=== PATIENT | female | born 1955 | race Caucasian/White ===

== ENCOUNTER 2021-04-06 22:41 | Inpatient (IN) | payer OTHER ==
[~2021-04-06] VITALS: Ht 160 cm; Wt 85.4 kg
--- NOTE | ~2021-04-06 | EKG ---
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1955 Requested By: Álvaro Dobbs Order Number: [id number] Reading MD: Measurements Intervals [place] Rate: 56 P: 61 GA: 159 QRS: 52 QRSD: 113 T: 136 QT: 461 QTc: 445 Interpretive Statements Sinus rhythm Borderline intraventricular conduction delay Repol abnrm suggests ischemia, lateral leads Minimal ST elevation, anterior leads Compared to ECG 04/11/2021 14:21:35 Possible ischemia now present Left ventricular hypertrophy no longer present ST (T wave) deviation still present [email or web address] By: 0507 Epiphany Epiphany, /CATHY
[2021-04-06 23:05] LABS: HEMATOCRIT 49.8 % (37.0-47.0); HEMOGLOBIN 15.9 gm/dL (12.0-15.0); MCH 27.8 pg (26.0-34.0); MPV 8.7 fl. (7.2-11.1); NUCLEATED RBCS 0 /100WBC; PLATELET COUNT* 469 thou/uL (150-400); RBC 5.72 mil/uL (4.20-5.00); RDW-CV 13.9 % (10.5-14.5)
[2021-04-06 23:18] LABS: PROTIME 10.6 Seconds (9.20-11.50)
[2021-04-06 23:19] LABS: CALCIUM 8.9 mg/dL (8.5-10.1); CREATININE 1.2 mg/dL (0.6-1.3); POTASSIUM 3.2 mmol/L (3.5-5.1)
[2021-04-06 23:20] VITALS: BP 300/150
[2021-04-06 23:24] LABS: ALBUMIN 3.4 g/dL (3.4-5.0); TOTAL BILIRUBIN 0.4 mg/dL (<0.1-1.0); TOTAL PROTEIN 8.5 g/dL (6.4-8.2)
[2021-04-06 23:31] VITALS: BP 172/110
[2021-04-07] VITALS (60 sets, daily range): BP systolic 99–179; BP diastolic 56–99
[2021-04-07 01:50] LABS: ABSOLUTE EOSINOPHILS 1.2 thou/uL (0.0-0.7); ABSOLUTE LYMPHOCYTES 6.6 thou/uL (0.8-5.3); ABSOLUTE NEUTROPHILS 7.1 thou/uL (1.6-8.1); PLATELET ESTIMATE INCREASED; TOXIC GRANULATION 2+
[2021-04-07 02:35] LABS: BE -10.5 mmol/L (-2 to +3); PCO2 46.7 mmHg (35.0-45.0)
[2021-04-07 02:37] LABS: PO2 191.1 mmHg (75.0-100.0); pH 7.193 (7.340-7.450)
[2021-04-07 03:51] LABS: CALCIUM 8.2 mg/dL (8.5-10.1); CREATININE 1.4 mg/dL (0.6-1.3); POTASSIUM 4.1 mmol/L (3.5-5.1)
[2021-04-07 07:27] LABS: CHLORIDE 103 mmol/L (98-107); POTASSIUM 3.7 mmol/L (3.5-5.1); SODIUM 141 mmol/L (136-145)
[2021-04-07 07:28] LABS: ANION GAP 12 mmol/L (7-16); BUN 26 mg/dL (7-18); CALCIUM 8.5 mg/dL (8.5-10.1); CO2 26 mmol/L (21-32); CREATININE 1.4 mg/dL (0.6-1.3); GLUCOSE 196 mg/dL (70-99)
[2021-04-07 07:30] LABS: CHOLESTEROL 181 mg/dL (<200); HDL CHOLESTEROL 55 mg/dL (>40); LDL CHOLESTEROL 76 mg/dL (<100); SERUM ASSESSMENT Slight Lipemia; TC:HDL 3.3 Ratio (Not establshd); TRIGLYCERIDE 251 mg/dL (<150); VLDL 50 mg/dL (<40)
--- NOTE | 2021-04-07 09:19 | CON ---
[address] [address] CONSULTATION Name: CONNIE FELDMAN Room: [address] IN .#: [id number] Admission: 04/07/21 Attend Phys: eJimy Dotson MD Discharge: Date of : 55 Report #: [id number] THIS REPORT FOR: cc: FAM - Family physician unknown FAM - Family physician unknown Álvaro Dobbs MD [facility] ~ DATE OF CONSULTATION: 04/06/2021 CARDIOLOGY CONSULTATION INDICATION: Cardiopulmonary arrest. HISTORY OF PRESENT ILLNESS: The patient is a 65-year-old [place] female whose family notified EMS of decline in health. She was found to be in respiratory distress with agonal respirations by EMS on arrival. The patient was intubated on the scene. She was transported to [facility] for further treatment. On arrival, she was found to be extremely hypertensive. Chest x-ray shows fulminant pulmonary edema. No history is available except from granddaughter who reports the patient has a history of diabetes, hypertension and hypercholesterolemia and anemia. Despite that, she is on no medications and has no family doctor. No allergies are recorded. PAST MEDICAL HISTORY: 1. Hypertension. 2. Hyperlipidemia. 3. Type 2 diabetes mellitus. 4. Anemia. PAST SURGICAL HISTORY: Not known. SOCIAL HISTORY: Not known. FAMILY HISTORY: Not known. REVIEW OF SYSTEMS: Unavailable. PHYSICAL EXAMINATION: VITAL SIGNS: Show blood pressure of 300/150 mmHg. Pulse rate is 113 beats per minute. Telemetry shows sinus tachycardia. GENERAL: This is a moderately obese, short in stature female who is intubated. She is unresponsive. HEENT: Head is normocephalic, atraumatic. Pupils are reactive. Mucous membranes are moist. NECK: Shows jugular venous distention without obvious bruit. CHEST: [place] [address] CONSULTATION Name: CONNIE FELDMAN Room: [address] IN [facility]#: [id number] Admission: 04/07/21 Attend Phys: Jeimy Dotson MD Discharge: Date of : 55 Report #: [id number] CARDIAC: Tachycardic with regular rhythm, no murmur. S4. ABDOMEN: Protuberant, soft, nontender. EXTREMITIES: No edema. SKIN: Dry. Peripheral pulses 2+ and palpable. IMAGING DATA: A 12-lead EKG shows sinus tachycardia. There is left ventricular hypertrophy with repolarization abnormality. There is 4-[address] segment elevation in the precordial leads. Chest x-ray shows fulminant pulmonary vascular congestion diffusely. LABORATORY DATA: Reviewed. White blood cell count 17, hemoglobin 15.9, platelet count 469. Sodium 139, potassium 3.2, chloride 99, bicarbonate 20, BUN 19, creatinine 1.2, serum glucose 347. IMPRESSION AND RECOMMENDATIONS: 1. Acute respiratory failure, likely due to acute heart failure, likely diastolic. Echocardiogram will be ordered and is pending. 2. Acute EKG abnormalities with ST segment elevation. Could be left ventricular hypertrophy with repolarization, cannot rule out acute anterior wall ST elevation myocardial infarction. We will proceed to the cardiac catheterization lab for urgent coronary angiography. 3. Hypertensive emergency. We will start labetalol bolus and nicardipine drip as available. Further medication adjustments to improve blood pressure control. 4. Diabetes, per hospitalist. 5. History of dyslipidemia. We will check fasting lipid profile. <ELECTRONICALLY SIGNED> By: Álvaro Dobbs MD, FACC 04/07/21 0919 [id number] [id number] Dobbs MD, FACC /nt
--- NOTE | 2021-04-07 09:29 | NUR ---
Pt is admitted to the hospital on 04/07/21 in Respiratory Failure secondary to possible ID. Pt is presently intubated and sedated. Called willi Le at: [phone] to complete assessment. Pt lives with spouse and another willi. Pt 1 step to enter the home but 10 steps to go up to her bedroom. Pt was previously independent in Mobility and ADL's. Pt has no hx of DME/HH/ or SNF. Pt has no PCP. Pt has no advanced directive that willi is aware of. CM to continue to follow for discharge planning.
--- NOTE | 2021-04-07 10:01 | EKG ---
[place] [address] ELECTROCARDIOGRAM REPORT Name: FISHJSREGLAWINCONNIE Room: [address] IN 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[place] : 1955 Requested By: Naomi Bautista Order Number: [id number] MD: Steve Yoon Measurements Intervals [place] Rate: 110 P: 27 ND: 156 QRS: 83 QRSD: 128 T: 228 QT: 345 QTc: 467 Interpretive Statements Sinus tachycardia LVH with IVCD and secondary repol abnrm Anterior ST elevation, probably due to LVH No previous ECG available for comparison Electronically Signed On 04-07-2021 10:01:41 J2EE PROGRAMMER by Steve Yoon [email or web address] <ELECTRONICALLY SIGNED> By: Steve Yoon MD, FAC 04/07/21 1001 2240 2240 Steve Yoon MD, [facility] /EPI
[2021-04-07 12:37] LABS: BE -1.9 mmol/L (-2 to +3); PCO2 43.5 mmHg (35.0-45.0); PO2 94.4 mmHg (75.0-100.0); pH 7.354 (7.340-7.450)
[2021-04-07 12:47] LABS: CALCIUM 8.1 mg/dL (8.5-10.1); CREATININE 1.6 mg/dL (0.6-1.3); MAGNESIUM 1.8 mg/dL (1.8-2.4); POTASSIUM 3.3 mmol/L (3.5-5.1)
--- NOTE | 2021-04-07 14:23 | 2DMMODE ---
[place] [address] 2 D/M-MODE ECHOCARDIOGRAM Name: CONNIE FELDMAN Room: [address] ADM IN [place]#: [id number] Admission: 04/07/21 Attend Phys: Jeimy Dotson, Discharge: Date of : 55 Date of Service: 04/07/21 1422 Report #: [id number] THIS REPORT FOR: cc: FAM - Family physician unknown FAM - Family physician unknown Steve Yoon MD [facility] ~ APPROVED REPORT Study performed: 04/07/2021 10:26:25 EXAM: Comprehensive 2D, Doppler, and color-flow Echocardiogram Patient Location: In-Patient Room #: 003 Status: routine BSA: 1.89 HR: 103 bpm BP: 107/60 mmHg Rhythm: NSR Other Information Study Quality: Adequate Indications Dyspnea 2D Dimensions IVSd: 16.21 (7-11mm) LVOT Diam: 19.90 (18-24mm) LVDd: 35.56 mm PWd: 13.91 (7-11mm) Ascending Ao: 29.43 (22-36mm) LVDs: 25.29 (25-40mm) Aortic Root: 29.91 mm Volumes Left Atrial Volume (Systole) LA ESV Index: 26.70 mL/m2 Aortic Valve AoV Peak Bruce.: 1.27 m/s AO Peak Gr.: 6.46 mmHg LVOT Max P.91 mmHg AO Mean Gr.: 3.64 mmHg LVOT Mean P.41 mmHg LVOT Max V: 0.85 m/s AO V2 VTI: 16.68 cm LVOT Mean V: 0.54 m/s ELLY (VTI): 2.16 cm2 LVOT V1 VTI: 11.60 [place] [address] 2 D/M-MODE ECHOCARDIOGRAM Name: CONNIE FELDMAN Room: [address]#: [id number] Admission: 04/07/21 Attend Phys: Jeimy Dotson, Discharge: Date of : 55 Date of Service: 04/07/21 1422 Report #: [id number] Mitral Valve E/A Ratio: 0.80 MV Decel. Time: 111.88 ms MV E Max Bruce.: 0.73 m/s MV PHT: 32.45 ms MVA (PHT): 6.78 cm2 TDI E/Lateral E': 12.17 Lateral E' Bruce.: 0.06 m/s Pulmonary Valve PV Peak Bruce.: 0.84 m/s PV Peak Gr.: 2.80 mmHg Left Ventricle The left ventricle is normal size. moderate hypokinesis of the mid and distal anteroseptal wall and apex Moderate concentric left ventricular hypertrophy. Left ventricular systolic function is mildly decreased. LVEF is 40-45%. Grade I - abnormal relaxation pattern. Right Ventricle The right ventricle is normal size. The right ventricular systolic function is normal. Atria The left atrium size is normal. The right atrium size is normal. Aortic Valve The aortic valve is normal in structure. No aortic regurgitation is present. There is no aortic valvular stenosis. Mitral Valve The mitral valve is normal in structure. There is no mitral valve regurgitation noted. No evidence of mitral valve stenosis. Tricuspid Valve The tricuspid valve is normal in structure. There is no tricuspid valve regurgitation noted. Pulmonic Valve Pulmonic valve is not well visualized. There is no pulmonic [place]vular [place] [address] 2 D/M-MODE ECHOCARDIOGRAM Name: CONNIE FELDMAN Room: [address]#: [id number] Admission: 04/07/21 Attend Phys: Jeimy Dotson, Discharge: Date of : 55 Date of Service: 04/07/21 1422 Report #: [id number] The aortic root is normal in size. IVC is normal in size and collapses >50% with inspiration. Pericardium There is no pericardial effusion. <Conclusion> Moderate concentric left ventricular hypertrophy. LVEF is 40-45%. moderate hypokinesis of the mid and distal anteroseptal wall and apex <ELECTRONICALLY SIGNED> By: Steve Yoon MD, FACC 04/07/211421 21 21 Steve Yoon MD, FACC /INF
--- NOTE | 2021-04-07 19:04 | NUR ---
0700: Assumed care of pt, received report from JOHNNA Steward. Head to toe assessment completed, VSS, and medications administrated. Monitor and titrate sedation per protocol. 1035: This RN received the results of the Troponin labs per laboratory engineer d/t being greater than 25,000. RN paged the cardiology answering service and left a message with JOHNNA Mcduffie for Dr. Dobbs about the pt's results. Waiting for further instruction/orders. Pt's HR is slightly tachycardic reading 107 on the monitor, all other VS are stable. JOHNNA Mcduffie with Dr. Dobbs's office, called back with further orders: Dr. Dobbs wants a repeat Troponin in 4 hours (1400) and start sunq Lovenox. PICC line ordered. Blood cultures obtained via laboratory engineer. 1100: PICC RN at the bedside placing a WAYNE III Lumen PICC for irritating medications and fluids. CXR stat for verification of line placement. 1200: Dr. Pyle plans to trial pt later on ventilation need. RT at the bedside. 1340: All sedation gtts off per Dr. Pyle's verbal order so that the pt can be trialed off the ventilator. Dr. Pyle at the bedside, RT Elizabeth at the bedside, along side this RN. 1400: RT trial began. Pt remained stable throughout the trial. Troponin redrawn. [id number]: Dr. Pyle at the bedside, verbal ordered for the pt to be extubated today. Troponin results called from lab, still greater than 25,000. Cardiology answering service called and message left for JOHNNA Mcduffie. Again, JOHNNA Mcduffie said once Dr. Dobbs calls with orders, she will call with them and update on how the provider wants to advance. 1600: RT Elizabeth and this RN extubated the pt. Pt tolerated well. Pt's VS remain stable despite an initial HR of 110s during extubation. Pt settled back down to the low 100s. Pt is awake and able to answer questions appropriately, still groggy d/t sedation still wearing off. Assessment remains unremarkable. 1641: JOHNNA Mcduffie called back with no further instructions/orders at this time. Dr. Dobbs wishes to wait until the pt is more medically stable all around then once she is considered stable enough, Dr. Dobbs will then re-investigate if the pt will benefit from another cardiac cath, this time with intervention possible, until then, monitor and manage symptoms with medication management. Dr. Dobbs made aware of pt's extubated status. Will continue to monitor.
--- NOTE | 2021-04-07 21:14 | CON ---
[address] [address] CONSULTATION Name: CONNIE FELDMAN Room: [address] IN .R.#: [id number] Admission: 04/07/21 Attend Phys: Jeimy Dotson MD Discharge: Date of : 55 Report #: [id number] THIS REPORT FOR: cc: FAM - Family physician unknown FAM - Family physician unknown Ankit Pyle MD ~ DATE OF CONSULTATION: 04/07/2021 Consult has been requested by Dr. Dotson. INDICATION FOR CONSULTATION: Acute hypoxemic respiratory failure. HISTORY OF PRESENT ILLNESS: This is a 65-year-old female. I do not have details regarding her past medical history available. Apparently, she is reported to have had hypertension as well as hyperlipidemia and diabetes. The patient is now admitted with respiratory distress, initially reported to have a systolic blood pressure elevated markedly to 300 systolic. She has marked elevation in troponin I as well. I understand she has had a cardiac catheterization on which old lesions were found and she may need more revascularization when she is more stable. Her arterial blood gas from last night did show a significant metabolic acidosis, I therefore did start her on a bicarb drip. Currently, she is stable. She is on 40% FiO2 and 5 of PEEP. She is sedated with propofol and fentanyl. Her triglycerides are elevated, though. Her chest x-ray from last night shows florid bilateral infiltrates versus pulmonary vascular congestion. I ordered a repeat chest x-ray and arterial blood gas now, which are pending at this time. The patient is unable to provide a further history or review of systems. PAST MEDICAL HISTORY: Hypertension, hyperlipidemia, type 2 diabetes, anemia. Echocardiogram is pending at this time. SOCIAL HISTORY: Unknown. FAMILY HISTORY: Unknown. HOME MEDICATIONS: Unknown. ALLERGIES: POSSIBLE HISTORY OF ALLERGY TO PENICILLIN. She is tolerating cephalosporins without problems. PHYSICAL EXAMINATION: VITAL SIGNS: Sedated with propofol and fentanyl. Ventilator settings on sedation are reviewed. She is on 40% FiO2, 5 of PEEP. Appears to be comfortable. She is currently hemodynamically stable. [place] [address] CONSULTATION Name: FISHJSREGLAWINCONNIE Collin Room: [address] IN [facility]#: [id number] Admission: 04/07/21 Attend Phys: Jeimy Dotson MD Discharge: Date of : 55 Report #: [id number] rate are within normal range. Endotracheal tube is in place. NECK: Does not show raised JVP, asymmetry, mass or lymph nodes. CHEST: Symmetrical expansion on inspection and palpation. On auscultation, breath sounds are bilaterally equal. No added sounds. HEART: Regular. There is no murmur. ABDOMEN: Soft and nontender. EXTREMITIES: Lower extremities, no edema, no calf tenderness. SKIN: Dry and intact. NEUROLOGIC: Moves all extremities to pain. DATA: Chest x-ray is as described above. CT head and CT abdomen also in [facility] reviewed. Arterial blood gas as discussed above. Other lab work in [facility] is reviewed. ASSESSMENT AND PLAN: 1. Acute hypoxemic respiratory failure, likely secondary to diastolic dysfunction due to hypertensive emergency. She is currently stable on the ventilator. Chest x-ray, however, shows florid bilateral infiltrates. Endotracheal tube was also low when the last chest x-ray was done last night. She also was acidotic at that time. I have ordered a repeat chest x-ray and arterial blood gas now. I will review these and then assess regarding suitability or otherwise of weaning today. We have had a PICC line placed. Her triglycerides are elevated; therefore, I intend to take her off propofol today. I will consider adding Precedex and p.r.n. Versed should she remain on the ventilator and continue with fentanyl. 2. Hypertensive emergency. Blood pressure is now within the normal range. Cardiology Service on the case. 3. Acute myocardial infarction. See discussion above. 4. Extensive bilateral infiltrates. There likely is a significant component of pulmonary vascular congestion, unclear as to whether she aspirated at any point and no definite history. We will do sputum culture. She is broadly covered with antibiotics. I do not feel strongly either way regarding adding or holding off on anaerobic coverage. COVID-19 PCR is also pending. Information regarding previous vaccination status is not known. Pending these results, I did order 6 mg of dexamethasone daily. I do not feel strongly either way regarding administering remdesivir at this time. Pending results, potentially can be considered. 5. Acute congestive heart failure secondary to hypertensive crisis. She does not have much pedal edema at this time. Chest x-ray is pending as above. 6. Metabolic acidosis and mild respiratory acidosis. We will decide whether to continue bicarbonate drip once I have repeat labs and ABGs available. 7. Deep venous thrombosis prophylaxis. She is already anticoagulated per Cardiology. Echo is pending. 8. Gastrointestinal prophylaxis, Protonix. [address] [place] [address] CONSULTATION Name: CONNIE FELDMAN Room: [address] IN [facility].#: [id number] Admission: 04/07/21 Attend Phys: Jeimy Dotson MD Discharge: Date of : 55 Report #: [id number] 9. Clostridium difficile prophylaxis, Lactinex. 10. History of diabetes/hyperglycemia. Already on an insulin sliding scale. The patient is critically ill at this time. Total time spent providing critical care to this patient today exceeds 40 minutes. <ELECTRONICALLY SIGNED> By: Ankit Pyle MD 04/07/21 2114 1134 [id number] Pyle MD /nt
[2021-04-08] VITALS (43 sets, daily range): BP systolic 139–214; BP diastolic 72–121
[2021-04-08 04:35] LABS: ABSOLUTE LYMPHOCYTES 0.6 thou/uL (0.8-5.3); ABSOLUTE MONOCYTES 0.5 thou/uL (0.0-1.2); BASOPHILS 0.3 %; HEMATOCRIT 38.6 % (37.0-47.0); LYMPHOCYTES 3.7 %; MCH 27.5 pg (26.0-34.0); MCHC 32.8 g/dL (28.0-37.0); MCV 83.8 fL (80.0-100.0); MPV 8.7 fl. (7.2-11.1); NUCLEATED RBCS 0 /100WBC; RDW-CV 14.1 % (10.5-14.5); WBC 17.2 thou/uL (4.0-11.0)
[2021-04-08 04:50] LABS: URINE BILIRUBIN NEGATIVE (Negative); URINE BLOOD 3+ (Negative); URINE COLOR YELLOW; URINE GLUCOSE-RANDOM NEGATIVE (Negative); URINE KETONES NEGATIVE (Negative); URINE LEUKOCYTES-REFLEX NEGATIVE (Negative); URINE NITRITE-REFLEX NEGATIVE (Negative); URINE PROTEIN 1+ (Negative); URINE UROBILINOGEN 0.2 E.U./dl (0.2-1.0)
[2021-04-08 04:51] LABS: URINE CLARITY SL HAZY
[2021-04-08 05:10] LABS: BACTERIA-REFLEX >30 Many /HPF (None Seen); MUCUS 4-6 Moderate strn/LPF (None Seen); SQUAMOUS 0-3 Few /LPF (0-3); URINE RBC >20 Many /HPF (0-2); URINE WBC-REFLEX >25 Many /HPF (0-5); WBC CLUMPS Moderate (None Seen)
[2021-04-08 05:11] LABS: CELLULAR CASTS 0-3 Few /LPF (None Seen); COARSE GRANULAR CASTS 0-3 Few /LPF (None Seen); CRYSTALS None Seen /LPF (None Seen)
[2021-04-08 05:20] LABS: ALBUMIN 2.8 g/dL (3.4-5.0); CALCIUM 8.7 mg/dL (8.5-10.1); CREATININE 1.5 mg/dL (0.6-1.3); MAGNESIUM 1.8 mg/dL (1.8-2.4); PHOSPHORUS* 3.2 mg/dL (2.5-4.9); POTASSIUM 3.5 mmol/L (3.5-5.1); TOTAL BILIRUBIN 0.6 mg/dL (<0.1-1.0)
[2021-04-08 06:15] LABS: PHOSPHORUS* 3.5 mg/dL (2.5-4.9)
[2021-04-08 06:18] LABS: HEMOGLOBIN 12.7 gm/dL (12.0-15.0); PLATELET COUNT* 280 thou/uL (150-400)
[2021-04-08 08:53] LABS: BE -0.5 mmol/L (-2 to +3); PCO2 34.7 mmHg (35.0-45.0); PO2 68.6 mmHg (75.0-100.0); pH 7.441 (7.340-7.450)
--- NOTE | 2021-04-08 16:17 | NUR ---
At or around 1320, pt called RN into the room with c/o of "left sided chest numbness". Pt has been fairly hypertensive most of the mid-morning. Pt has PRN Hydralazine on her MAR for HTN. Last dose was successful, the second dose was not as effective. RN contacted Cardiology's answering service, left a message with Kapil. Dr. Yoon returned the page, RN updated him with pt's heart rate, BP, past BPs, and pt's c/o "chest pain/pressure". Dr. Yoon ordered the Losartan be increased to 50mg Q12 hours and to start a Catapress TTS II patch NOW, then change every 7 days. RN implemented these interventions and educated pt on the Clonidine patch. BP was 180s-190s/90s-100s and is now down to 160s/80s after medications were administered. Will continue to monitor. 1500: Pt still having c/o "chest pain" on her L side, more towards the shoulder. RN contacted the Cardiology answering service and spoke with Marion. RN re-assessed the pt's chest pain, re-took VS, and auscultated pt's heart. Waiting for further instructions from Dr. Yoon. 1530: Dr. Yoon returned this RN's call with new orders. Dr. Yoon ordered 2-6mg IVP Morphine every 2 hours as needed for pain. If this is unsuccessful, alert provider, and reassess. RN administered 4mg IVP Morphine. Pt states her pain is now a 1/10, BP is in the 160s/70s, HR down to the low 100s, SpO2 95%. Will continue to monitor.
--- NOTE | 2021-04-08 18:50 | NUR ---
1630: Pt considered tele status. RN informed pt of her status change. 1700: Report called to the step down unit and given to JOHNNA Orozco. 1715: Blood sugar before dinner was 237, pt was given 10 units of Lispro to treat her hyperglycemia. Pt's dinner meal arrived and was set up for her to eat before her transfer. 1745: Pt transferred to step down unit via wheelchair in the presence of nursing staff. Pt's VSS, no c/o chest pain or shortness of breath at this time. Pt left with her belongings in her possession: cell phone and rubber thread spooler. Pt left in stable condition. Family was called to be alerted to her change of room and change in status.
[2021-04-09 04:12] VITALS: BP 170/90
--- NOTE | 2021-04-09 06:29 | NUR ---
PT AO X4 NSR ON TELE. LUNGS DIMINISHED ON RA. PT IS NEG FOR COVID PER PCR. SHE HAS A SMALL PUNCTURE OF UNKNOWN CAUSE ON RT FOREARM THAT HAS CONTINUALLY BLED THROUGHOUT THIS PM SHIFT. IT WAS REDRESSED AT 2030 AND WAS SATURATED AT 0300 AND REDRESSED WITH PRESSURE BANDAGE. SHE DENIES PAIN. MRSA SCREEN SENT TO LAB. PT UP ADLIB TO TOILET, STRICT I/O DONE THIS SHIFT. CALL LIGHT IN REACH, PT MAKES NEEDS KNOWN ON HOURLY ROUNDING.
[2021-04-09 08:00] VITALS: BP 177/91
[2021-04-09 08:01] LABS: HEMATOCRIT 37.8 % (37.0-47.0); HEMOGLOBIN 12.3 gm/dL (12.0-15.0); MCH 27.1 pg (26.0-34.0); MCHC 32.6 g/dL (28.0-37.0); MCV 83.3 fL (80.0-100.0); MPV 8.6 fl. (7.2-11.1); RBC 4.53 mil/uL (4.20-5.00); RDW-CV 14.1 % (10.5-14.5); WBC 17.3 thou/uL (4.0-11.0)
[2021-04-09 08:22] LABS: CALCIUM 9.2 mg/dL (8.5-10.1); CREATININE 1.4 mg/dL (0.6-1.3); POTASSIUM 3.6 mmol/L (3.5-5.1)
[2021-04-09 11:58] VITALS: BP 161/86
[2021-04-09 16:00] VITALS: BP 185/98
--- NOTE | 2021-04-09 18:21 | NUR ---
MOVE PATIENT TO ROOM 118 VIA WHEELCHAIR. PATIENT HERE DUE TO RECENT PNEUMONIA AND CAD. PATIENT HAD RECENT HEART CATH. SHE HAS MULTIPLE OCCLUSIONS. PIC LINE RIGHT UPPER ARM. ALL 3 PORTS PATENT. PATIENT HAS SCATTERED CRACKLES AND DIMINISHED BREATH SOUNDS.
[2021-04-09 18:30] VITALS: BP 152/70
[2021-04-09 20:00] VITALS: BP 177/75
[2021-04-10 00:38] VITALS: BP 146/69
[2021-04-10 04:00] VITALS: BP 150/61
[2021-04-10 04:05] LABS: GLYCOHEMOGLOBIN (HGB A1C) 7.4 % (4.8-5.6)
[2021-04-10 04:57] LABS: HEMATOCRIT 36.9 % (37.0-47.0); HEMOGLOBIN 12.2 gm/dL (12.0-15.0); MCH 27.6 pg (26.0-34.0); MCV 83.5 fL (80.0-100.0); MPV 8.5 fl. (7.2-11.1); NUCLEATED RBCS 0 /100WBC; PLATELET COUNT* 324 thou/uL (150-400); RBC 4.41 mil/uL (4.20-5.00); RDW-CV 13.9 % (10.5-14.5); WBC 13.8 thou/uL (4.0-11.0)
[2021-04-10 05:15] LABS: CALCIUM 8.9 mg/dL (8.5-10.1); CREATININE 1.4 mg/dL (0.6-1.3); MAGNESIUM 2.1 mg/dL (1.8-2.4); POTASSIUM 4.1 mmol/L (3.5-5.1)
--- NOTE | 2021-04-10 05:39 | NUR ---
PT AO X4, NSR ON THE TELEMONITOR, RESTING COMFORTABLY IN BED. SHE HAD A LATE DINNER OF [employer]CD[employer] BROUGHT IN BY DAUGHTER LAST PM AND BLOOD SUGARS WERE HIGH. PUNCTURE ON RT ARM WAS REDRESSED AND IT WAS SATURATED BUT HAD SOME CLOTTED BLOOD ON ABD PAD. THIS AM WHILE DRAWING BLOOD I NOTICED BANDAGE HAD SLIPPED DOWN HER ARM AND THERE WAS NO ACTIVE BLEEDING. THE ARE IS BRUISED BUT SKIN IS INTACT WITH EXCEPTION OF THE PUNCTURE. BANDAGE REMOVED FROM LT KNEE WHERE PRESUMABLY WAS THE SITE OF THE IO THAT WAS PLACED BY EMS ON THE WAY TO HOSPITAL. LUNGS CLEAR WITH LITTLE COUGH, PRODUCING CLEAR TO WHITE PHLEGM. PT STRICT I/O AND DAILY WT. SHE SLEPT WELL AND MADE NEEDS KNOWN WITH HOURLY ROUNDING,
[2021-04-10 08:17] LABS: ABSOLUTE LYMPHOCYTES 0.7 thou/uL (0.8-5.3); ABSOLUTE MONOCYTES 0.8 thou/uL (0.0-1.2); ABSOLUTE NEUTROPHILS 12.3 thou/uL (1.6-8.1); PLATELET ESTIMATE ADEQUATE
[2021-04-10 08:30] VITALS: BP 179/77
--- NOTE | 2021-04-10 13:06 | NUR ---
REPORT GIVEN TO TALIB ROBLES TO TRANSFER TO ROOM 208.
--- NOTE | 2021-04-10 15:54 | NUR ---
CM ASSESSMENT ASSESSMENT COMPLETED WITH PT GRANDDAUGHTER (SUPRIYA PATEL [phone]). 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 PT USES NO DME. PT IND WITH ADLS. PT HAS NO HX OF SNF, REHAB, OR HH. PT DECLINED HH AND A OUTPATIENT CARDIOLOGY APPOINTMENT WAS SCHEDULED FOR 04/17/21 AT CARDIOLOGY. PT NOT CLEARED FOR DC YET. PT PENDING CARDIOLOGY CLEARANCE. CM TO FOLLOW.
[2021-04-10 17:57] VITALS: BP 174/85
[2021-04-10 20:00] VITALS: BP 161/85
[2021-04-11] VITALS (16 sets, daily range): BP systolic 137–176; BP diastolic 55–80
--- NOTE | 2021-04-11 01:50 | NUR ---
RESTING QUIETLY. INDEPENDENT BRP WITH STEADY GAIT. HAVING OCC DRY HACKY COUGH. TELEMETRY ON SHOWING SR. PT ANXIOUS FOR POSS DISCHARGE TODAY.
--- NOTE | 2021-04-11 14:38 | EKG ---
[place] [address] ELECTROCARDIOGRAM REPORT Name: CONNIE FELDMAN Room: [address] ADM IN .R.#: [id number] Admission: 04/07/21 Attend Phys: Jeimy Dotson, Discharge: Date of : 55 Date of Service: 04/11/21 1421 Report #: [id number] THIS REPORT FOR: //name// [facility] Test Date: 2021-04-11 Test Time: 14:21:35 Pat Name: CONNIE FELDMAN Department: Room: [address] Gender: F Desktop Architect: : 1955 Requested By: Álvaro Dobbs Order Number: [id number] Reading MD: Álvaro Dobbs Measurements Intervals [place] Rate: 54 P: 79 PA: 166 QRS: 62 QRSD: 117 T: 127 QT: 471 QTc: 447 Interpretive Statements Sinus rhythm LVH with IVCD and secondary repol abnrm Anterior ST elevation, probably due to LVH Compared to ECG 04/06/2021 22:40:00 Sinus tachycardia no longer present ST (T wave) deviation still present Electronically Signed On 04-11-2021 14:38:38 DEPLOYMENT SPECIALIST by Álvaro Dobbs [email or web address] <ELECTRONICALLY SIGNED> By: Álvaro Dobbs MD, [facility] 04/11/21 1438 142 142 Álvaro Dobbs MD, [facility] /EPI
--- NOTE | 2021-04-11 14:38 | NUR ---
CM FOLLOWUP PT NOT MED CLEAR AND UNDERGOING CARDIC INTERVENTION. CM TO FOLLOW FOR DC PLANNING NEEDS.
--- NOTE | 2021-04-11 15:10 | CARD ---
[address] [address] CARDIAC CATH REPORT Name: CONNIE FELDMAN Room: [address] IN [facility]#: [id number] Admission: 04/07/21 Attend Phys: Jeimy Dotson MD Discharge: Date of : 55 Report #: [id number] THIS REPORT FOR: cc: FAM - Family physician unknown FAM - Family physician unknown Álvaro Dobbs MD [facility] ~ APPROVED REPORT Study performed: 04/06/2021 23:20:20 Patient Details Patient Status: ED Room #: Event Personnel Dr Álvaro Dobbs, Destiney Bullock RN, Serge Munoz RTR, Hoda Cox RTR Procedure Narrative The patient was brought emergently to the Cardiac Catheterization Laboratory and was prepped and draped in a sterile manner. The right femoral was infiltrated with 2% Lidocaine subcutaneous anesthesia. A 6Fr Cecil sheath was inserted into the right femoral artery. Coronary angiography was performed using coronary diagnostic catheters. The right coronary system was accessed and visualized with a Diagnostic JR4 6Fr catheter. The left coronary system was accessed and visualized with a Diagnostic JL4 6Fr catheter. The left ventricle was accessed and visualized with a Diagnostic JR4 6Fr catheter. Left ventricular/Aortic Valve gradient assessed via catheter pullback. Pre-demployment femoral angiogram was performed . Closure device was deployed with a 6 Fr Mynx. There was no hematoma. Intraoperative Conscious Sedation Sedation start time: 1155 Case end Time: 1214 Fluoro Time: 2.4 minutes Dose: DAP 2043.79 cGycm2 258 mGy Contrast Type and Amount: 95cc [place]ipague Diagnostic Cath Left Main The left main is free of significant disease and bifurcates into a left anterior descending and circumflex coronary artery. LAD The left anterior descending coronary artery is moderately plaqued proximally. There is a 90% tubular [place] [address] CARDIAC CATH REPORT Name: CONNIE FELDMAN Room: [address] IN ..#: [id number] Admission: 04/07/21 Attend Phys: eJimy Dotson MD Discharge: Date of : 55 Report #: [id number] distal vessel appears free of significant disease. Diagonal 1 A high rising first diagonal branch appears free of significant disease. Diagonal 2 A high rising second diagonal branch appears free of significant disease. Diagonal 3 A third diagonal branch off of the mid LAD is diffusely diseased. Circumflex The proximal to mid circumflex is diffusely moderately diseased up to 60 or 70% in the proximal and midportion. There is a focal distal stenosis of approximately 50% after the takeoff of a third obtuse marginal branch. OM1 Very high rising and free of obvious significant disease. OM2 Free of significant disease. OM3 Free of significant disease. L PDA Free of significant disease. Right Coronary The right coronary artery is totally occluded proximally. R PDA The PDA is filled from left to right collaterals. No significant disease noted. Left Ventriculography Left Ventriculography was not performed. Conclusion 1. Severe three-vessel coronary artery disease as outlined above. Recommendations 1. Consider percutaneous coronary intervention after patient's acute heart failure adequately treated. 2. Continue aggressive risk factor modification. 3. Continue aggressive medical treatment at this time. <ELECTRONICALLY SIGNED> By: Álvaro Dobbs MD, FACC 04/11/21 1510 09 09Micelvira Dobbs MD, FACC /INF
--- NOTE | 2021-04-11 15:37 | CARD ---
[address] [address] CARDIAC CATH REPORT Name: CONNIE FELDMAN Room: [address] IN [facility]#: [id number] Admission: 04/07/21 Attend Phys: Jeimy Dtoson MD Discharge: Date of : 55 Report #: [id number] THIS REPORT FOR: cc: FAM - Family physician unknown FAM - Family physician unknown Lucho Chicas MD [facility] ~ APPROVED REPORT Study performed: 04/11/2021 12:59:41 Patient Details Patient Status: In-Patient Room #: 208 The patient is a 65 year-old female Event Personnel Lucho Chicas Cylinder Valve Repairer, Álvaro Dobbs Shredded Filler Cigar Maker Machine, Serge Munoz RTR Scrub, Hoda Cox RTR Monitor, Zhanna Camarillo RN RN, Emily Griffith RN Monitor Procedures Performed Art Access - R femoral artery* Coronary Angiography Only [id number] CORANG SERENA Place w/wo Plasty Single LAD [id number] Hemostasis w/ Angioseal Indication CHF Current Status: No , Non-STEMI , Cardiomyopathy Risk Factors Obesity, Hypercholesterolemia, Hypertension Admission/Lab Medications/Medications given during procedure 0.9% Sodium Chloride IV 75 ml per hr, Oxygen Nasal cannula 2 l per min, Lidocaine Subcut 15 ml, Angiomax IV 13 ml, Angiomax Drip IV 29.61 ml per hr, Nitroglycerin IC 200 mcg, Plavix PO 150 mg Procedure Narrative The patient was brought electively to the Cardiac Catheterization Laboratory and was prepped and draped in a sterile manner. The right femoral was infiltrated with 2% Lidocaine subcutaneous anesthesia. IV conscious sedation was used throughout procedure with appropriate monitoring and was performed in the presence of a registered nurse who was an independent trained observer other than the physician performing the procedure. A [place] 6 [place] [address] CARDIAC CATH REPORT Name: CONNIE FELDMAN Room: [address] IN [facility].#: [id number] Admission: 04/07/21 Attend Phys: Jeimy Dotson MD Discharge: Date of : 55 Report #: [id number] the right femoral artery. Coronary angiography was performed using coronary diagnostic catheters. The right coronary system was accessed and visualized with a diagnostic 6 Fr JR 4 catheter. The left coronary system was accessed and visualized with a diagnostic 6 Fr JL 4 catheter. Pre-demployment femoral angiogram was performed . Closure device was deployed with a Fr Angioseal STS 6Fr. The patient tolerated the procedure well and there were no complications associated with the procedure. There was no hematoma. Intraoperative Conscious Sedation Sedation start time: 1315 Case end Time: 1401 Fentanyl 25 mcg Versed 1 mg Fluoro Time: 7.0 minutes Dose: DAP 22383 cGycm2 913 mGy Contrast Type and Amount: Visipaque 240 mL Coronary Angiography The patient's coronary anatomy is right dominant. Diagnostic Cath Left Main 10% distal narrowing LAD 40% tubular proximal narrowing with 90% diffuse mid vessel stenosis and 50% distal narrowing Circumflex Nondominant vessel with 60 - 70% proximalmid vessel stenosis and 50% distal narrowing Right Coronary Dominant vessel which had been recently defined to be 100% occluded proximally; there are prominent collaterals from the LAD through the septum to the distal right coronary artery Left Ventriculography Left Ventriculography was not performed. Hemodynamics The aortic pressure is 150/58 mmHg with a mean of 89 mmHg. PCI Technique Lesion Anticoagulation was achieved with Angiomax. Patient was preloaded with Angiomax IV 13 ml. Percutaneous coronary intervention was performed on the Mid LAD. The lesion stenosis prior to intervention was 90% with SKYLA 3 flow. A 6F XB LAD 3.5 Guide Catheter was used to engage the ostium. A BMW 190cm Interventional Guidewire was [place] [address] CARDIAC CATH REPORT Name: CONNIE FELDMAN Room: [address]#: [id number] Admission: 04/07/21 Attend Phys: Jeimy Dotson MD Discharge: Date of : 55 Report #: [id number] BALLOON DILATION A Balloon catheter Trek RX 2.25 X 15 was inserted and inflated up to 10atm for 10seconds. Additional Inflation: 12atm for 6seconds. Additional Inflation: 14atm for 12seconds. STENT DEPLOYMENT A drug-eluting stent [place] RX Stent 2.25X 22 was inserted and inflated up to 12.00atm for 6seconds. Additional Inflation: 15atm for 8seconds. Additional Inflation: 14atm for 7seconds. A drug-eluting [place] RX stent 2.25X 12mm was inserted and inflated up to 12.00 ibeth for 8 seconds. POST STENT DEPLOYMENT BALLOON DILATION A Balloon catheter [place] Euphora 2.5x8 was inserted and inflated up to 15.00atm for 7seconds. Additional Inflation: 19.00atm for 9seconds. Final angiography reveals 0 % stenosis with SKYLA 3 flow. Conclusion 1. Significant multivessel coronary artery disease characterized by the following: A 10% distal left main coronary artery narrowing B 40% tubular proximal LAD narrowing with 90% diffuse mid vessel stenosis with 50% distal narrowing C nondominant circumflex with 60-70% proximalmid vessel stenosis and 50% distal narrowing D dominant right coronary artery which is totally occluded proximally with [id number] collaterals from the LAD through the septum to the distal right coronary artery 2. Mild systemic systolic hypertension 3. Successful PCI with deployment of 2 drug-eluting stents at the site of 90% mid LAD stenosis with 0% residual narrowing and SKYLA-3 flow to the distal vessel Recommendations Cardiac Risk Reduction Program [place] [address] CARDIAC CATH REPORT Name: CONNIE FELDMAN Room: [address]#: [id number] Admission: 04/07/21 Attend Phys: Jeimy Dotson MD Discharge: Date of : 55 Report #: [id number] Medications Administered Prasugrel Diagnostic Cath Approved by: Álvaro Dobbs MD Date/Time: 04/11/2021 15:33:59 <ELECTRONICALLY SIGNED> By: Lucho Chicas MD, FACC 04/11/21 1537 1537 1537Jodiamond Chicas MD, FACC /INF
[2021-04-12 01:23] VITALS: BP 136/67
[2021-04-12 04:00] VITALS: BP 115/61
[2021-04-12 04:01] LABS: HEMATOCRIT 37.5 % (37.0-47.0); HEMOGLOBIN 12.4 gm/dL (12.0-15.0); MCH 27.5 pg (26.0-34.0); MCV 83.5 fL (80.0-100.0); MPV 8.4 fl. (7.2-11.1); RBC 4.49 mil/uL (4.20-5.00); RDW-CV 13.5 % (10.5-14.5); WBC 11.8 thou/uL (4.0-11.0)
[2021-04-12 04:19] LABS: ALBUMIN 2.8 g/dL (3.4-5.0); CALCIUM 8.7 mg/dL (8.5-10.1); CREATININE 1.1 mg/dL (0.6-1.3); POTASSIUM 4.1 mmol/L (3.5-5.1); TOTAL BILIRUBIN 0.3 mg/dL (<0.1-1.0); TOTAL PROTEIN 6.6 g/dL (6.4-8.2)
[2021-04-12 08:37] VITALS: BP 167/74
[2021-04-12] MEDS ORDERED: LIPITOR 40 MG T40 M1 PO (09:10)
[2021-04-12] MEDS ORDERED: COZAAR 50 MG TA50 M1 PO (09:10)
[2021-04-12] MEDS ORDERED: CARVEDILOL25 MG PO (09:10)
[2021-04-12] MEDS ORDERED: LASIX 40 MG TAB40 M1 PO (09:10)
[2021-04-12] MEDS ORDERED: KLOR-CON M2020 MEQ PO (09:10)
[2021-04-12] MEDS ORDERED: CATAPRES-TTS 20.2 MG TRANSDERM (09:10)
[2021-04-12] MEDS ORDERED: BAYER CHEWABLE81 MG PO (09:10)
[2021-04-12] MEDS ORDERED: CLOPIDOGREL75 MG PO (09:10)
--- NOTE | 2021-04-12 09:53 | EKG ---
[place] [address] ELECTROCARDIOGRAM REPORT Name: FRANCIACONNIE Polanco Room: [address] ADM IN .R.#: [id number] Admission: 04/07/21 Attend Phys: Jeimy Dotson, Discharge: Date of : 55 Date of Service: 04/12/21 0507 Report #: [id number] THIS REPORT FOR: //name// [facility] Test Date: 2021-04-12 Test Time: 05:07:06 Pat Name: CONNIE FELDMAN Department: Room: [address] Gender: F Machine Baster: [id number] : 1955 Requested By: Álvaro Dobbs Order Number: [id number] Reading MD: Lucho Chicas Measurements Intervals [place] Rate: 56 P: 61 NM: 159 QRS: 52 QRSD: 113 T: 136 QT: 461 QTc: 445 Interpretive Statements Sinus rhythm Minor intraventricular conduction delay Repol abnrm; possible ischemia, lateral leads Minimal ST elevation, anterior leads Compared to ECG 04/11/2021 14:21:[address] segment depression is slightly less prominent Left ventricular hypertrophy no longer present ST-T changes persist Electronically Signed On 04-12-2021 9:53:47 CONDENSER TESTER by Lucho Chicas [email or web address] <ELECTRONICALLY SIGNED> By: Lucho Chicas MD, [facility] 04/12/21 0953 050 0507 Lucho Chicas MD, [facility] /EPI
[2021-04-12] MEDS ORDERED: LEVOFLOXACIN500 MG PO (10:45)
[2021-04-12 12:00] VITALS: BP 113/48
[2021-04-12 13:48] VITALS: BP 167/74
--- NOTE | 2021-04-12 14:30 | NUR ---
Reviewed discharge teaching with patient and daughter; verbalized understanding. PICC line and panel monitor discontinued. Pt discharged from unit per WC.
== END 2021-04-12 14:32 | disposition home or self-care (01) | DRG 246 ==
LOC: EDBD 22:41 → M.CL 22:41 → M.ERS 22:41 → M.CL 23:31 → M.ICU 04-07 00:57 → M.ORTHSURG 04-08 18:16 → M.2W 04-10 14:20
PROVIDERS: Emergency Medicine; Internal Medicine; Internal Medicine Cardiovascular Disease; Internal Medicine Critical Care Medicine; ADMIT Internal Medicine; ATTEND Internal Medicine
PROC: B41FYZZ Fluoroscopy of Right Lower Extremity Arteries using Other Contrast (ICD-10-PCS; principal; 2021-04-06)
PROC: 4A023N7 Measurement of Cardiac Sampling and Pressure, Left Heart, Percutaneous Approach (ICD-10-PCS; principal; 2021-04-06)
PROC: B211YZZ Fluoroscopy of Multiple Coronary Arteries using Other Contrast (ICD-10-PCS; principal; 2021-04-06)
PROC: 0BH17EZ Insertion of Endotracheal Airway into Trachea, Via Natural or Artificial Opening (ICD-10-PCS; 2021-04-07)
PROC: 02HV33Z Insertion of Infusion Device into Superior Vena Cava, Percutaneous Approach (ICD-10-PCS; 2021-04-07)
PROC: 5A1935Z Respiratory Ventilation, Less than 24 Consecutive Hours (ICD-10-PCS; 2021-04-07)
PROC: B41FYZZ Fluoroscopy of Right Lower Extremity Arteries using Other Contrast (ICD-10-PCS; 2021-04-11)
PROC: 027035Z Dilation of Coronary Artery, One Artery with Two Drug-eluting Intraluminal Devices, Percutaneous Approach (ICD-10-PCS; 2021-04-11)
PROC: B211YZZ Fluoroscopy of Multiple Coronary Arteries using Other Contrast (ICD-10-PCS; 2021-04-11)
PROC: 4A023N7 Measurement of Cardiac Sampling and Pressure, Left Heart, Percutaneous Approach (ICD-10-PCS; 2021-04-11)
DX: I13.0 Hypertensive heart and chronic kidney disease with heart failure and stage 1 through stage 4 chronic kidney disease, or unspecified chronic kidney disease (principal); J96.01 Acute respiratory failure with hypoxia; I21.A1 Myocardial infarction type 2; N17.0 Acute kidney failure with tubular necrosis; J69.0 Pneumonitis due to inhalation of food and vomit; I50.41 Acute combined systolic (congestive) and diastolic (congestive) heart failure; I16.1 Hypertensive emergency; I16.9 Hypertensive crisis, unspecified; I67.4 Hypertensive encephalopathy; N39.0 Urinary tract infection, site not specified; E78.5 Hyperlipidemia, unspecified; I25.10 Atherosclerotic heart disease of native coronary artery without angina pectoris; R74.01 Elevation of levels of liver transaminase levels; E78.00 Pure hypercholesterolemia, unspecified; N18.9 Chronic kidney disease, unspecified; E11.22 Type 2 diabetes mellitus with diabetic chronic kidney disease; Z20.822 Contact with and (suspected) exposure to COVID-19; Z28.21 Immunization not carried out because of patient refusal; Z79.82 Long term (current) use of aspirin; Z79.899 Other long term (current) drug therapy; Z90.710 Acquired absence of both cervix and uterus